=== PATIENT | female | born 1950 | race African-American/Black ===

== ENCOUNTER 2018-02-05 05:16 | Day surgery (SDC) | payer BC, OTHER ==
[~2018-02-05] VITALS: Ht 162.6 cm; Wt 84.8 kg
[~2018-02-05 05:16] MED LIST: ALLEGRA ALLERGY60 MG PO; ASPIR 8181 M1 PO; AVELOX400 MG PO; AZOR 5/40 MG1 TABLET PO; BENICAR PO; CALTRATE 600 +1 EAC1 PO; CHROMIUM PIC1000 MCG PO; Combivent IH; ECHINACEA HERB380 MG PO; FISH OIL 1,2001 EAC4 PO; FLONASE16 G1 BOTH NARES; Flonase NS; LIPITO PO; LIPITOR80 MG PO; LO-DOSE ASPIRIN81 M1 PO; MECLIZINE HCL25 MG PO; OMEPRAZOLE40 M1 PO; PROBIOTIC1 EAC3 PO; PROZAC40 MG PO; TRIBENZOR 40-51 EAC4 PO; VALTREX1000 MG PO
[2018-02-05 06:41] VITALS: BP 98/62
[2018-02-05 13:00] VITALS: BP 110/57
[2018-02-06 00:33] VITALS: BP 112/55
[2018-02-06 04:17] VITALS: BP 133/65
[2018-02-06 06:59] LABS: HEMATOCRIT 32.7 % (36.0-46.0); MCH 30.6 PG (29.0-34.0); MCV 92.6 FL (83-99); PLATELET COUNT 195 K/uL (156-360); RBC DIS.WIDTH-CV 13.2 % (11.8-14.6); RBC DIS.WIDTH-SD 45.2 % (39-53); RED BLOOD COUNT 3.53 M/uL (3.80-5.20)
[2018-02-06 07:07] LABS: HEMOGLOBIN 10.8 G/DL (11.9-15.5)
[2018-02-06 07:24] LABS: CHLORIDE 108 MEQ/L (99-109); CREATININE 0.8 MG/DL (0.6-1.3); GFR ESTIMATE (CALCULATED) > 59 mL/min/; GLUCOSE 104 mg/dL (70-99); SODIUM 143 MEQ/L (136-147); UREA NITROGEN (BUN) 7 mg/dL (9-23)
[2018-02-06 08:39] VITALS: BP 120/60
[2018-02-06] MEDS ORDERED: ENDOCET 5-3251 EACH PO (10:19)
[2018-02-06] MEDS ORDERED: MOTRIN800 MG PO (10:19)
[2018-02-06 12:45] VITALS: BP 128/70
== END 2018-02-06 14:11 | disposition home or self-care (01) ==
LOC: SDC 05:16 → 2SOUTH 11:00 → 2EAST 11:00 → 2SOUTH 11:00 → ENRESERV 11:31 → 2EAST 12:50 → SDC 15:04 → 2EAST 02-06 14:11
PROVIDERS: Obstetrics & Gynecology
DX: D25.0 Submucous leiomyoma of uterus (principal); N72 Inflammatory disease of cervix uteri; N84.0 Polyp of corpus uteri; N83.202 Unspecified ovarian cyst, left side; N83.201 Unspecified ovarian cyst, right side; K66.0 Peritoneal adhesions (postprocedural) (postinfection); N81.4 Uterovaginal prolapse, unspecified
CPT/HCPCS: 80048; 85027; 88307; G0378; J0131; J0330; J0690; J1100; J1170; J2250; J2270; J2405; J2765; J7120; S0020